=== PATIENT | male | born 1970 | race Caucasian/White ===

== ENCOUNTER 2019-05-22 19:19 | Emergency (ER) | payer OTHER ==
[~2019-05-22] VITALS: Ht 190.5 cm; Wt 124.0 kg
[~2019-05-22 19:19] MED LIST: APIX5TAB PO; APIX5TAB2 PO; CEFD300C3 PO; CYCL-97 PO; DILT360C19 PO; DILT360C36 PO; DLT240CCR PO; Diltiazem Hcl PO; ENOX120D SQ; ESOM20CA32 PO; ESOM20SU; FLEC50TA PO; HYDR-229 PO; HYDR-3455 PO; HYDR1TAB PO; LISI10TA2 PO; METO-370 PO; NAPR-243 PO; NF-ESOM40C PO; PHEN8TAB PO; TELM20TA PO; TELM40TA PO
[2019-05-22] MEDS ORDERED: PROCHLORPERAZINE 10 MG/2ML INJ (COMPAZINE) IV ONE (19:30)
[2019-05-22] MEDS ORDERED: diphenhydrAMINE 50 MG/ML INJ (BENADRYL) IVP ONE (19:30)
[2019-05-22] MEDS ORDERED: NS IV 1000 ML 1,000 ML IV SCH (19:30)
[2019-05-22] MEDS ORDERED: KETOROLAC 30 MG/ML VIAL IVP ONE (19:30)
[2019-05-22 19:37] LABS: BASOPHILS % (AUTO) 0 % (0-10); EOSINOPHILS # (AUTO) 0.1 10^3/uL (0.0-0.3); EOSINOPHILS % (AUTO) 2 % (0-10); HEMATOCRIT 43 % (40-54); HEMOGLOBIN 14.7 G/DL (13.3-17.7); LYMPHOCYTES # (AUTO) 2.3 X 10^3 (1.0-4.0); LYMPHOCYTES % (AUTO) 32 % (12-44); MEAN CORPUSCULAR HEMOGLOBIN 29 PG (25-34); MEAN CORPUSCULAR HGB CONC 35 G/DL (32-36); MEAN CORPUSCULAR VOLUME 85 FL (80-99); MEAN PLATELET VOLUME 11.5 FL (7.4-10.4); MONOCYTES # (AUTO) 0.7 X 10^3 (0.0-1.0); MONOCYTES % (AUTO) 10 % (0-12); NEUTROPHILS % (AUTO) 56 % (42-75); PLATELET COUNT 173 10^3/uL (130-400); RED CELL DISTRIBUTION WIDTH 12.9 % (10.0-14.5); WHITE BLOOD COUNT 7.1 10^3/uL (4.3-11.0)
--- NOTE | 2019-05-22 19:38 | ED Headache ---
General Chief Complaint: Head/Cervical Problems Stated Complaint: SEVERE HEADACHE Source: patient Exam Limitations: no limitations History of Present Illness Date Seen by Provider: May 22, 2019 Time Seen by Provider: 19:35 Initial Comments To ER with reports of a headache. He rates this 11 out of 10 and is global. The headache is worsened by loud noises and light he does have some nausea with that that began today. The headache itself began about 3 days ago, he awakened with it mild at first and got progressively worse since then. He has taken Tylenol for this and initially that did resolve the headache but it has not helped today. No fevers chills or injury. Not on anticoagulation. No history of headaches or migraines. He cannot identify any other alleviating or exacerbating factors. He did quit chewing tobacco today. Timing/Duration: other (3 days) Severity/Quality: severe Location: global Prior Headaches/Recent Trauma: no recent headache/trauma Modifying Factors: worse with exposure to light Associated Symptoms: No confusion, No fatigue, No fever/chills, No loss of consciousness; nausea/vomiting; No nasal congestion, No nasal drainage, No sinus infection, No stiff neck; vision changes (blurred vision) Allergies and Home Medications Allergies Coded Allergies: No Known Drug Allergies (Unverified , 02/22/16) Home Medications Apixaban 5 Mg Tablet, 5 MG PO BID, (Reported) RESTART THIS MEDICATION 02/28/16 AM DOSE Diltiazem HCl 360 Mg Capsule.er, 360 MG PO DAILY, (Reported) Enoxaparin Sodium 120 Mg/0.8 Ml Syringe, 120 MG SQ BID Prescribed by: OZ BURRELL on 02/27/16 1121 Esomeprazole Magnesium 40 Mg Cap, 40 MG PO DAILY, (Reported) Flecainide Acetate 50 Mg Tablet, 50 MG PO BID, (Reported) Hydrocodone/Acetaminophen 1 Each Tablet, 1 EACH PO Q4H PRN for PAIN Prescribed by: SANTIAGO SOLANO on 02/27/16 1405 Lisinopril 10 Mg Tablet, 10 MG PO DAILY, (Reported) Metoprolol Succinate 50 Mg Tab.er.24h, 150 MG PO DAILY, (Reported) PATIENT TAKES 1 1/2 TABLETS OF 50 MG TABLET DAILY Patient Home Medication List Home Medication List Reviewed: Yes Review of Systems Review of Systems Constitutional: see HPI Eyes: No Symptoms Reported Ears, Nose, Mouth, Throat: no symptoms reported Respiratory: no symptoms reported Cardiovascular: no symptoms reported Genitourinary: no symptoms reported Musculoskeletal: no symptoms reported Skin: no symptoms reported Psychiatric/Neurological: See HPI, Headache Past Wvbwmwu-Opsngu-Ullgua Hx Patient Social History Recent Foreign Travel: No Contact w/Someone Who Travel: No Immunizations Up To Date Tetanus Booster (TDap): More than 5yrs PED Vaccines UTD: Yes Seasonal Allergies Seasonal Allergies: No Past Medical History Atrial Fibrillation, Hypertension Reproductive Disorders: No Sexually Transmitted Disease: No HIV/AIDS: No Kidney Stones Gastroesophageal Reflux Loss of Vision: Bilateral Hearing Impairment: Denies Skin Adverse Reaction/Blood Tranf: No (HAS HAD BLOOD WITH NO TRANSFUSION) Family Medical History Cancer 03 MOTHER (colon ca age at 63) Heart disease 09 BROTHER, Onset:40's - 50 (irregular heart beats) Physical Exam Vital Signs Vital Signs - First Documented 05/22/19 19:34 Temp 97.6 Pulse 98 Resp 18 B/P (MAP) 185/121 (142) O2 Delivery Room Air Capillary Refill : Height, Weight, BMI Height: 6'3.00" Weight: 273lbs. 6.0oz. 124.156380qk; 34.2 BMI Method:Stated General Appearance: WD/WN, no apparent distress HEENT: PERRL/EOMI, normal ENT inspection, TMs normal Neck: non-tender, full range of motion Respiratory: no respiratory distress, no accessory muscle use Gastrointestinal: normal bowel sounds, non tender, soft Extremities: normal range of motion, non-tender Psychiatric: alert, oriented x 3 Crainal Nerves: normal hearing, normal speech, PERRL Motor/Sensory: no motor deficit, no sensory deficit, no pronator drift Skin: normal color, warm/dry Progress/Results/Core Measures Results/Orders Lab Results Laboratory Tests Test 05/22/19 19:32 Range/Units White Blood Count 7.1 4.3-11.0 10^3/uL Red Blood Count 5.01 4.35-5.85 10^6/uL Hemoglobin 14.7 13.3-17.7 G/DL Hematocrit 43 40-54 % Mean Corpuscular Volume 85 80-99 FL Mean Corpuscular Hemoglobin 29 25-34 PG Mean Corpuscular Hemoglobin Concent 35 32-36 G/DL Red Cell Distribution Width 12.9 10.0-14.5 % Platelet Count 173 130-400 10^3/uL Mean Platelet Volume 11.5 H 7.4-10.4 FL Neutrophils (%) (Auto) 56 42-75 % Lymphocytes (%) (Auto) 32 12-44 % Monocytes (%) (Auto) 10 0-12 % Eosinophils (%) (Auto) 2 0-10 % Basophils (%) (Auto) 0 0-10 % Neutrophils # (Auto) 4.0 1.8-7.8 X 10^3 Lymphocytes # (Auto) 2.3 1.0-4.0 X 10^3 Monocytes # (Auto) 0.7 0.0-1.0 X 10^3 Eosinophils # (Auto) 0.1 0.0-0.3 10^3/uL Basophils # (Auto) 0.0 0.0-0.1 10^3/uL Erythrocyte Sedimentation Rate 3 0-15 MM/HR Sodium Level 142 135-145 MMOL/L Potassium Level 3.9 3.6-5.0 MMOL/L Chloride Level 109 H 98-107 MMOL/L Carbon Dioxide Level 22 21-32 MMOL/L Anion Gap 11 5-14 MMOL/L Blood Urea Nitrogen 19 H 7-18 MG/DL Creatinine 1.19 0.60-1.30 MG/DL Estimat Glomerular Filtration Rate > 60 BUN/Creatinine Ratio 16 Glucose Level 103 70-105 MG/DL Calcium Level 9.1 8.5-10.1 MG/DL Corrected Calcium 8.7 8.5-10.1 MG/DL Total Bilirubin 0.4 0.1-1.0 MG/DL Aspartate Amino Transf (AST/SGOT) 19 5-34 U/L Alanine Aminotransferase (ALT/SGPT) 20 0-55 U/L Alkaline Phosphatase 72 40-136 U/L Total Protein 7.3 6.4-8.2 GM/DL Albumin 4.5 3.2-4.5 GM/DL My Orders Orders - SOHAM JOYCE APRN Ct Head Wo (05/22/19 19:25) Cbc With Automated Diff (05/22/19 19:25) Erythrocyte Sedimentation Rate (05/22/19 19:25) Comprehensive Metabolic Panel (05/22/19 19:25) Ed Iv/Invasive Line Start (05/22/19 19:25) Ketorolac Injection (Toradol Injection) (05/22/19 19:30) Ns Iv 1000 Ml (Sodium Chloride 0.9%) (05/22/19 19:30) Diphenhydramine Injection (Benadryl Inje (05/22/19 19:30) Prochlorperazine Injection (Compazine In (05/22/19 19:30) Medications Given in ED Current Medications Medications Dose Ordered Sig/Hilda Route Start Time Stop Time Status Last Admin Dose Admin Diphenhydramine HCl 25 mg ONCE ONCE IVP 05/22/19 19:30 05/22/19 19:31 DC 05/22/19 19:48 25 MG Ketorolac Tromethamine 15 mg ONCE ONCE IVP 05/22/19 19:30 05/22/19 19:31 DC 05/22/19 19:48 15 MG Prochlorperazine Edisylate 5 mg ONCE ONCE IV 05/22/19 19:30 05/22/19 19:31 DC 05/22/19 19:47 5 MG Vital Signs/I&O 05/22/19 19:34 Temp 97.6 Pulse 98 Resp 18 B/P (MAP) 185/121 (142) O2 Delivery Room Air Departure Communication (Admissions) 2011-headache is now completely gone, blood pressure down to 144/96. is present and is concerned about his high blood pressure, states that he is on lisinopril and diltiazem at home and despite this he has persistence high blood pressures. Impression Primary Impression: Headache Qualified Codes: R51 - Headache Disposition: 01 HOME, SELF-CARE Condition: Stable Departure-Patient Inst. Decision time for Depature: 19:57 Referrals: BELEM HA MD (PCP/Family) Primary Care Physician Patient Instructions: Headache, Adult (DC) Add. Discharge Instructions: 1. Return to ER for any concerns 2. Follow-up with your doctor next week 3. All discharge instructions reviewed with patient and/or family. Voiced understanding. SOHAM JOYCE CUSTOM STUDIO COORDINATOR May 22, 2019 19:37
--- NOTE | 2019-05-22 19:44 | Diagnostic Imaging Report ---
PROCEDURE: CT head without contrast. TECHNIQUE: Multiple contiguous axial images were obtained through the brain without the use of intravenous contrast. Auto Exposure Controls were utilized during the CT exam to meet ALARA standards for radiation dose reduction. INDICATION: Headache COMPARISON: None. FINDINGS: The ventricles are normal in size, shape and position. There is no midline shift or mass effect. There is no hemorrhage or evidence of acute ischemia. No extraaxial fluid collection is seen. The paranasal sinuses and mastoids are clear. The bony calvarium is normal. IMPRESSION: Negative CT head. Dictated by: Dictated on workstation # [id number]
[2019-05-22 19:56] LABS: ALANINE AMINOTRANSFERASE 20 U/L (0-55); ALBUMIN 4.5 GM/DL (3.2-4.5); ALKALINE PHOSPHATASE 72 U/L (40-136); BILIRUBIN,TOTAL 0.4 MG/DL (0.1-1.0); BUN/CREATININE RATIO 16; CALCIUM 9.1 MG/DL (8.5-10.1); CARBON DIOXIDE 22 MMOL/L (21-32); CHLORIDE 109 MMOL/L (98-107); CREATININE SERUM 1.19 MG/DL (0.60-1.30); ERYTHROCYTE SEDIMENTATION RATE 3 MM/HR (0-15); GFR ESTIMATED > 60; GLUCOSE 103 MG/DL (70-105); POTASSIUM 3.9 MMOL/L (3.6-5.0); SODIUM 142 MMOL/L (135-145); TOTAL PROTEIN 7.3 GM/DL (6.4-8.2)
[2019-05-22 20:43] VITALS: BP 140/81
== END 2019-05-22 20:45 | disposition home or self-care (01) ==
LOC: EDUNIT# 19:19 → ER 19:21
DX: R51 Headache (principal); I10 Essential (primary) hypertension; I48.91 Unspecified atrial fibrillation; K21.9 Gastro-esophageal reflux disease without esophagitis; H54.7 Unspecified visual loss; Z79.01 Long term (current) use of anticoagulants; Z87.442 Personal history of urinary calculi; Z80.0 Family history of malignant neoplasm of digestive organs; Z82.49 Family history of ischemic heart disease and other diseases of the circulatory system
CPT/HCPCS: 36415; 70450; 80053; 83735; 85025; 85652

== ENCOUNTER 2020-06-17 18:20 | Emergency (ER) | payer OTHER ==
[~2020-06-17] VITALS: Ht 187.9 cm; Wt 120.2 kg
[~2020-06-17 18:20] MED LIST changes: -METO-370 PO; +METO50TA7 PO
--- NOTE | 2020-06-17 18:29 | ED EENT ---
History of Present Illness General Stated Complaint: EYE INJ Source: patient Exam Limitations: no limitations History of Present Illness Date Seen by Provider: Jun 17, 2020 Time Seen by Provider: 18:29 Initial Comments This is a healthy 50-year-old male who presents to the ER with swelling of his left eye after after baling hay approximately 30 minutes prior to arrival. States he felt like he had basic dirt in his eye and after rubbing his eye he noticed rapid swelling. He immediately presented to the ER. Denies loss/change in vision. Denies pain. Timing/Duration: abrupt Location: eye (L) Prearrival Treatment: no prearrival treatment Associated Symptoms: denies symptoms Allergies and Home Medications Allergies Coded Allergies: No Known Drug Allergies (Unverified , 02/22/16) Home Medications Apixaban 5 Mg Tablet, 5 MG PO BID, (Reported) RESTART THIS MEDICATION 02/28/16 AM DOSE Diltiazem HCl 360 Mg Capsule.er, 360 MG PO DAILY, (Reported) Enoxaparin Sodium 120 Mg/0.8 Ml Syringe, 120 MG SQ BID Prescribed by: OZ BURRELL on 02/27/16 1121 Esomeprazole Magnesium 40 Mg Cap, 40 MG PO DAILY, (Reported) Flecainide Acetate 50 Mg Tablet, 50 MG PO BID, (Reported) Hydrocodone/Acetaminophen 1 Each Tablet, 1 EACH PO Q4H PRN for PAIN Prescribed by: SANTIAGO SOLANO on 02/27/16 1405 Lisinopril 10 Mg Tablet, 10 MG PO DAILY, (Reported) Metoprolol Succinate 50 Mg Tab.er.24h, 150 MG PO DAILY, (Reported) PATIENT TAKES 1 1/2 TABLETS OF 50 MG TABLET DAILY Patient Home Medication List Home Medication List Reviewed: Yes Review of Systems Review of Systems Constitutional: see HPI Eyes: See HPI Ears: No Symptoms Reported Nose: no symptoms reported Mouth: no symptoms reported Throat: no symptoms reported Respiratory: no symptoms reported Cardiovascular: no symptoms reported Gastrointestinal: no symptoms reported Musculoskeletal: no symptoms reported Skin: no symptoms reported Neurological: No Symptoms Reported Hematologic/Lymphatic: No Symptoms Reported Immunological/Allergic: no symptoms reported Past Kmawmdh-Moxghh-Mhxzny Hx Patient Social History Type Used: Smokeless Tobacco Recent Foreign Travel: No Contact w/Someone Who Travel: No Recent Hopitalizations: No Immunizations Up To Date Tetanus Booster (TDap): More than 5yrs PED Vaccines UTD: Yes Seasonal Allergies Seasonal Allergies: No Past Medical History Surgeries: Yes (CARDIOVERSION, REPAIR OF CUT LEG) Respiratory: No Cardiac: Yes Atrial Fibrillation, Hypertension Neurological: Yes ( A CHILD FROM MALNUTRITION) Reproductive Disorders: No Sexually Transmitted Disease: No HIV/AIDS: No Kidney Stones Gastrointestinal: Yes Gastroesophageal Reflux Musculoskeletal: No Endocrine: No Loss of Vision: Bilateral Hearing Impairment: Denies Cancer: Yes (ON SHOULDER) Skin Psychosocial: No Integumentary: No Blood Disorders: No Adverse Reaction/Blood Tranf: No (HAS HAD BLOOD WITH NO TRANSFUSION) Family Medical History Cancer 03 MOTHER (colon ca age at 63) Heart disease 09 BROTHER, Onset:40's - 50 (irregular heart beats) Visual Acuity : Eye Location: Left Physical Exam Vital Signs Vital Signs - First Documented 06/17/20 18:24 Temp 36.5 Pulse 65 Resp 20 B/P (MAP) 197/128 (151) Pulse Ox 97 O2 Delivery Room Air Height, Weight, BMI Height: 6'3.00" Weight: 273lbs. 6.0oz. 124.079223hx; 34.2 BMI Method:Stated General Appearance: WD/WN, no apparent distress Eyes: right eye normal inspection, right eye PERRL, right eye EOMI; left eye conjunctival inflammation Ears: bilateral ear auricle normal, bilateral ear canal normal Nose: normal inspection; No active bleeding Mouth/Throat: normal mouth inspection, pharynx normal Neck: non-tender, full range of motion, normal inspection Cardiovascular: regular rate, rhythm, no edema, no gallop Respiratory: chest non-tender, lungs clear, normal breath sounds, no respiratory distress, no accessory muscle use Gastrointestinal: normal bowel sounds, non tender, soft Neurologic/Psychiatric: no motor/sensory deficits, alert, normal mood/affect, oriented x 3 Skin: normal color, warm/dry Progress/Results/Core Measures Results/Orders My Orders Orders - PARDEEP JAMIL MANAGER POKER Fluorescein Strips ([id number]) (06/17/20 18:30) Balanced Salt Irrigation Soln (Bss Irrig (06/17/20 18:30) Ns Iv 1000 Ml (Sodium Chloride 0.9%) (06/17/20 18:30) Prednisolone 1% Ophthalmic Pricilla (Pred For (06/17/20 18:41) Prednisolone 1% Ophthalmic Pricilla (Pred For (06/17/20 18:45) Diphenhydramine Tablet (Benadryl Tablet) (06/17/20 18:45) Medications Given in ED Current Medications Medications Dose Ordered Sig/Hilda Route Start Time Stop Time Status Last Admin Dose Admin Diphenhydramine HCl 50 mg ONCE ONCE PO 06/17/20 18:45 06/17/20 18:57 DC 06/17/20 19:01 50 MG Prednisolone Acetate 5 ml STK-MED ONCE .ROUTE 06/17/20 18:41 06/17/20 18:46 DC 06/17/20 18:45 5 ML Vital Signs/I&O 06/17/20 06/17/20 06/17/20 06/17/20 18:24 19:17 20:17 20:37 Temp 36.5 36.1 Pulse 65 56 51 51 Resp 20 20 20 20 B/P (MAP) 197/128 (151) 168/118 (135) 166/107 (126) 166/107 Pulse Ox 97 94 97 97 O2 Delivery Room Air Room Air Room Air Room Air Progress Progress Note : Progress Note Pressure in ED noted at 170s over low 100s-119. States she is very anxious when his eye began to swell and has not yet taken his antihypertensives this evening. Due to his elevation in blood pressure I will not give oral steroids at this time. He can continue oral antihistamines at home along with PredForte eyedrops as directed. Departure Communication (Admissions) Time/Spoke to Consulting Phy: 18:40 I discussed findings with Dr. Irby at this time, he recommended Predforte drops every 15 minutes 1 hour, then every hour 3 hours, then 4 times a day for 6 days. Instructed to give patient his cell phone and placed on Medrol Dose pack if not contraindicated. He is to call him for any worsening symptoms. Impression Primary Impression: Chemosis of left conjunctiva Disposition: HOME, SELF-CARE Condition: Stable/Unchanged Departure-Patient Inst. Decision time for Depature: 19:27 Referrals: BELEM HA MD (PCP/Family) Primary Care Physician Patient Instructions: Swelling Add. Discharge Instructions: Plan: 1. If you experience any worsening symptoms, loss of vision, changes in vision or any other concerning symptoms. Please call Dr. Fraser at [phone]. [address] 2 drops of the Predforte in her left eye every hour over the next 2 hours. Then placed 2 drops in your eye 4 times a day for the next 6 days. 3. Be sure to wash her hands prior to touching eyes to avoid additional reactions. May use cool compresses for swelling and discomfort. 4. Taking her antihypertensives as soon as you get home. 5. Return to the ER for any new or concerning symptoms Copy Copies To 1: BELEM HA MD, STORMY D MANAGER POKER Jun 17, 2020 18:29
[2020-06-17] MEDS ORDERED: FLUORESCEIN (FLUOR-I-STRIPS) 1 MG STRP OU ONE (18:30)
[2020-06-17] MEDS ORDERED: TETRACAINE 0.5% OPHTH SOLN 4 ML BTL (SINGLE DOSE ONLY) OU ONE (18:30)
[2020-06-17] MEDS ORDERED: NS IV 1000 ML 1,000 ML ONE (18:30)
[2020-06-17] MEDS ORDERED: BSS 15 ML IR ONE (18:30)
[2020-06-17] MEDS ORDERED: prednisoLONE 1% OPTH (PRED FORTE) 5 ML BTL ONE (18:41)
[2020-06-17] MEDS ORDERED: prednisoLONE 1% OPTH (PRED FORTE) 5 ML BTL OU SCH (18:45)
[2020-06-17] MEDS ORDERED: diphenhydrAMINE 25 MG TAB (BENADRYL) PO ONE (18:45)
[2020-06-17 19:17] VITALS: BP 168/118
[2020-06-17 20:17] VITALS: BP 166/107
[2020-06-17 20:37] VITALS: BP 166/107
== END 2020-06-17 20:30 | disposition home or self-care (01) ==
LOC: EDUNIT# 18:20 → ER 18:21
DX: H11.422 Conjunctival edema, left eye (principal); I10 Essential (primary) hypertension; K21.9 Gastro-esophageal reflux disease without esophagitis; Z82.49 Family history of ischemic heart disease and other diseases of the circulatory system; Z80.0 Family history of malignant neoplasm of digestive organs; Z85.828 Personal history of other malignant neoplasm of skin; Z79.01 Long term (current) use of anticoagulants
CPT/HCPCS: 99283

== ENCOUNTER 2021-02-22 07:40 | Emergency (ER) | payer OTHER ==
[~2021-02-22] VITALS: Ht 190 cm; Wt 120.0 kg
[~2021-02-22 07:40] MED LIST changes: +LISI10TA25 PO
--- NOTE | 2021-02-22 09:07 | ED EENT ---
History of Present Illness General Chief Complaint: Ear Problems Stated Complaint: L EAR PAIN Nursing Triage Note: Patient states he was getting out of the shower yesterday and got water in his ear. He states he tried to get the water out with his finger and then used a q-tip with no relief. He states today he is unable to hear from his left ear. Source: patient Exam Limitations: no limitations History of Present Illness Date Seen by Provider: February 22, 2021 Time Seen by Provider: 08:50 Initial Comments Here with report of left ear clogged. States he was showering yesterday and got water in his ear. He tried to clear that with his finger and then a Q-tip and this did not help. States that his hearing is decreased from the left ear. Denies upper respiratory symptoms, allergy symptoms, fever or chills. Denies any other recent trauma. Has had history of wax in his ears with similar problem previously. Timing/Duration: abrupt Location: ear (L) Prearrival Treatment: other (Tried flushing at home without success.) Associated Symptoms: No ear drainage, No fever, No nasal congestion/drainage, N o sore throat Allergies and Home Medications Allergies Coded Allergies: No Known Drug Allergies (Unverified , 02/22/16) Home Medications Apixaban 5 Mg Tablet, 5 MG PO BID, (Reported) RESTART THIS MEDICATION 02/28/16 AM DOSE Diltiazem HCl 360 Mg Capsule.er, 360 MG PO DAILY, (Reported) Enoxaparin Sodium 120 Mg/0.8 Ml Syringe, 120 MG SQ BID Prescribed by: OZ BURRELL on 02/27/16 1121 Esomeprazole Magnesium 40 Mg Cap, 40 MG PO DAILY, (Reported) Flecainide Acetate 50 Mg Tablet, 50 MG PO BID, (Reported) Hydrocodone/Acetaminophen 1 Each Tablet, 1 EACH PO Q4H PRN for PAIN Prescribed by: SANTIAGO SOLANO on 02/27/16 1405 Lisinopril 10 Mg Tablet, 10 MG PO DAILY, (Reported) Metoprolol Succinate 50 Mg Tab.er.24h, 150 MG PO DAILY, (Reported) PATIENT TAKES 1 1/2 TABLETS OF 50 MG TABLET DAILY Patient Home Medication List Home Medication List Reviewed: Yes Review of Systems Review of Systems Constitutional: No chills, No fever Eyes: No Symptoms Reported Ears: See HPI; Denies Pain Respiratory: No cough, No short of breath Cardiovascular: no symptoms reported Past Iptnvtv-Nrkozn-Kfxeys Hx Past Med/Social Hx: Reviewed Nursing Past Med/Soc Hx Patient Social History Alcohol Use: Denies Use Type Used: Smokeless Tobacco 2nd Hand Smoke Exposure: No Recent Infectious Disease Expo: No Recent Hopitalizations: No Immunizations Up To Date Tetanus Booster (TDap): More than 5yrs PED Vaccines UTD: Yes Seasonal Allergies Seasonal Allergies: No Past Medical History Surgeries: Yes (CARDIOVERSION, REPAIR OF CUT LEG, ABLASION) Respiratory: No Cardiac: Yes Atrial Fibrillation, Hypertension Neurological: Yes ( A CHILD FROM MALNUTRITION) Reproductive Disorders: No Sexually Transmitted Disease: No HIV/AIDS: No Kidney Stones Gastrointestinal: Yes Gastroesophageal Reflux Musculoskeletal: No Endocrine: No Loss of Vision: Bilateral Hearing Impairment: Denies Cancer: Yes (ON SHOULDER) Skin Psychosocial: No Integumentary: No Blood Disorders: No Adverse Reaction/Blood Tranf: No (HAS HAD BLOOD WITH NO TRANSFUSION) Family Medical History Reviewed Nursing Family Hx Cancer 03 MOTHER (colon ca age at 63) Heart disease 09 BROTHER, Onset:40's - 50 (irregular heart beats) Physical Exam Vital Signs Vital Signs - First Documented 02/22/21 08:35 Temp 36.5 Pulse 65 Resp 16 B/P (MAP) 169/123 (138) Pulse Ox 97 O2 Delivery Room Air Height, Weight, BMI Height: 6'3.00" Weight: 273lbs. 6.0oz. 124.323723oc; 33.00 BMI Method:Stated General Appearance: WD/WN, no apparent distress Ears: right ear TM normal; left ear other (TM covered with cerumen. No obvious problems within the canal otherwise.); bilateral ear auricle normal, bilateral ear canal normal Mouth/Throat: normal mouth inspection, pharynx normal Neck: full range of motion, supple Cardiovascular: regular rate, rhythm, no murmur Respiratory: lungs clear, normal breath sounds Neurologic/Psychiatric: alert, oriented x 3 Skin: normal color, warm/dry Progress/Results/Core Measures Results/Orders Vital Signs/I&O 02/22/21 08:35 Temp 36.5 Pulse 65 Resp 16 B/P (MAP) 169/123 (138) Pulse Ox 97 O2 Delivery Room Air Blood Pressure Mean: 138 Progress Progress Note : Progress Note Seen and evaluated. Patient has obvious cerumen impaction. We will try to clear that the flushing. 929: Patient states that he has to go to work. He decided he will try this at home. Discharged home with instructions for flushing. Departure Impression Primary Impression: Impacted cerumen Qualified Codes: H61.22 - Impacted cerumen, left ear Disposition: 01 HOME, SELF-CARE Condition: Stable Departure-Patient Inst. Decision time for Depature: 09:30 Referrals: BELEM HA MD (PCP/Family) Primary Care Physician Patient Instructions: Ear Wax Impaction (DC) Add. Discharge Instructions: All discharge instructions reviewed with patient and/or family. Voiced understanding. You may use [id number] earwax drops or continue to flush. Follow-up with ear nose and throat doctor for recheck and further evaluation as needed. LASHAWN RIVERA MD February 22, 2021 09:06
[2021-02-22 09:37] VITALS: BP 182/126
== END 2021-02-22 09:50 | disposition home or self-care (01) ==
LOC: EDUNIT# 07:40 → ER 07:42
DX: H61.22 Impacted cerumen, left ear (principal); I10 Essential (primary) hypertension; I48.91 Unspecified atrial fibrillation; K21.9 Gastro-esophageal reflux disease without esophagitis; Z79.01 Long term (current) use of anticoagulants; Z79.899 Other long term (current) drug therapy
CPT/HCPCS: 99282

== ENCOUNTER 2021-05-09 01:27 | Emergency (ER) | payer OTHER ==
[~2021-05-09] VITALS: Ht 185 cm; Wt 113.0 kg
[2021-05-09] MEDS ORDERED: PROCHLORPERAZINE 10 MG/2ML INJ (COMPAZINE) IV ONE (03:15)
[2021-05-09] MEDS ORDERED: KETOROLAC 30 MG/ML VIAL IVP ONE (03:15)
[2021-05-09] MEDS ORDERED: LACTATED RINGERS 1,000 ML IV ONE (03:15)
[2021-05-09] MEDS ORDERED: diphenhydrAMINE 50 MG/ML INJ (BENADRYL) IVP ONE (03:15)
[2021-05-09 03:18] LABS: POTASSIUM 3.5 MMOL/L (3.6-5.0)
[2021-05-09 03:19] LABS: CALCIUM 9.3 MG/DL (8.5-10.1)
[2021-05-09 03:24] LABS: CREATININE SERUM 1.06 MG/DL (0.60-1.30)
[2021-05-09 03:46] LABS: TSH (THYROID ANALYZER) 0.83 UIU/ML (0.35-4.94)
--- NOTE | 2021-05-09 04:28 | ED Headache ---
General Chief Complaint: Head/Cervical Problems Stated Complaint: MIGRAINE Nursing Triage Note: Patient verbalized headache. states side pain. denies fever/vomitting/diarrhea. Source: patient Exam Limitations: no limitations Allergies and Home Medications Allergies Coded Allergies: No Known Drug Allergies (Unverified , 02/22/16) Home Medications Apixaban 5 Mg Tablet, 5 MG PO BID, (Reported) RESTART THIS MEDICATION 02/28/16 AM DOSE Diltiazem HCl 360 Mg Capsule.er, 360 MG PO DAILY, (Reported) Enoxaparin Sodium 120 Mg/0.8 Ml Syringe, 120 MG SQ BID Prescribed by: OZ BURRELL on 02/27/16 1121 Esomeprazole Magnesium 40 Mg Cap, 40 MG PO DAILY, (Reported) Flecainide Acetate 50 Mg Tablet, 50 MG PO BID, (Reported) Hydrocodone/Acetaminophen 1 Each Tablet, 1 EACH PO Q4H PRN for PAIN Prescribed by: SANTIAGO SOLANO on 02/27/16 1405 Lisinopril 10 Mg Tablet, 10 MG PO DAILY, (Reported) Metoprolol Succinate 50 Mg Tab.er.24h, 150 MG PO DAILY, (Reported) PATIENT TAKES 1 1/2 TABLETS OF 50 MG TABLET DAILY Past Egesczh-Dtsrch-Oekzno Hx Patient Social History Tobacco Use?: No Use of E-Cig and/or Vaping dev: No Substance use?: No Alcohol Use?: No Pt feels they are or have been: No Immunizations Up To Date Tetanus Booster (TDap): More than 5yrs PED Vaccines UTD: Yes Seasonal Allergies Seasonal Allergies: No Past Medical History Surgeries: Yes (CARDIOVERSION, REPAIR OF CUT LEG, ABLASION) Respiratory: No Cardiac: Yes Atrial Fibrillation, Hypertension Neurological: Yes ( A CHILD FROM MALNUTRITION) Reproductive Disorders: No Sexually Transmitted Disease: No HIV/AIDS: No Kidney Stones Gastrointestinal: Yes Gastroesophageal Reflux Musculoskeletal: No Endocrine: No Loss of Vision: Bilateral Hearing Impairment: Denies Cancer: Yes (ON SHOULDER) Skin Psychosocial: No Integumentary: No Blood Disorders: No Adverse Reaction/Blood Tranf: No (HAS HAD BLOOD WITH NO TRANSFUSION) Family Medical History Cancer 03 MOTHER (colon ca age at 63) Heart disease 09 BROTHER, Onset:40's - 50 (irregular heart beats) Physical Exam Vital Signs Vital Signs - First Documented 05/09/21 02:15 Temp 37.0 Pulse 96 Resp 20 B/P (MAP) 165/117 (133) Pulse Ox 96 O2 Delivery Room Air Capillary Refill : Less Than 3 Seconds Height, Weight, BMI Height: 6'3.00" Weight: 273lbs. 6.0oz. 124.137203wi; 33.00 BMI Method:Stated Progress/Results/Core Measures Results/Orders Lab Results Laboratory Tests Test 05/09/21 02:15 Range/Units Sodium Level 143 135-145 MMOL/L Potassium Level 3.5 L 3.6-5.0 MMOL/L Chloride Level 107 98-107 MMOL/L Carbon Dioxide Level 22 21-32 MMOL/L Anion Gap 14 5-14 MMOL/L Blood Urea Nitrogen 12 7-18 MG/DL Creatinine 1.06 0.60-1.30 MG/DL Estimat Glomerular Filtration Rate 74 BUN/Creatinine Ratio 11 Glucose Level 142 H 70-105 MG/DL Calcium Level 9.3 8.5-10.1 MG/DL TSH [place] Testing 0.83 0.35-4.94 UIU/ML SARS-CoV-2 RNA (RT-PCR) Negative Not Detecte My Orders Orders - ADELAIDA BILL MD Covid 19 Inhouse Test (05/09/21 02:25) Prochlorperazine Injection (Compazine In (05/09/21 03:15) Diphenhydramine Injection (Benadryl Inje (05/09/21 03:15) Ed Iv/Invasive Line Start (05/09/21 03:05) Lactated Ringers (Lr 1000 Ml Iv Solution (05/09/21 03:15) Ketorolac Injection (Toradol Injection) (05/09/21 03:15) Basic Metabolic Panel (05/09/21 03:08) Thyroid Analyzer (05/09/21 03:08) Medications Given in ED Current Medications Medications Dose Ordered Sig/Hilda Route Start Time Stop Time Status Last Admin Dose Admin Diphenhydramine HCl 25 mg ONCE ONCE IVP 05/09/21 03:15 05/09/21 03:16 DC 05/09/21 03:16 25 MG Ketorolac Tromethamine 15 mg ONCE ONCE IVP 05/09/21 03:15 05/09/21 03:16 DC 05/09/21 03:17 15 MG Lactated Ringer's 1,000 ml @ 0 mls/hr Q0M ONCE IV 05/09/21 03:15 05/09/21 03:16 DC 05/09/21 03:15 0 MLS/HR Prochlorperazine Edisylate 5 mg ONCE ONCE IV 05/09/21 03:15 05/09/21 03:16 DC 05/09/21 03:14 5 MG Vital Signs/I&O 05/09/21 02:15 Temp 37.0 Pulse 96 Resp 20 B/P (MAP) 165/117 (133) Pulse Ox 96 O2 Delivery Room Air Blood Pressure Mean: 133 Departure Impression Primary Impression: Acute headache Qualified Codes: R51.9 - Headache, unspecified Additional Impression: Hypertension Qualified Codes: I10 - Essential (primary) hypertension Disposition: 01 HOME, SELF-CARE Condition: Improved Departure-Patient Inst. Decision time for Depature: 04:27 Referrals: BELEM HA MD (PCP/Family) Primary Care Physician Patient Instructions: Home Headache Remedies, Headache, Adult (DC) Add. Discharge Instructions: Drink plenty of clear liquids to stay well-hydrated. Get plenty of rest in a quiet calm place this morning. Call with questions or concerns. Return to the ER if you have worsening symptoms. Follow-up with your primary care provider to discuss headache treatment and prevention. Avoid things that can escalate your blood pressure such as excessive salt or stimulants such as caffeine, decongestant medicines, diet pills or supplements, energy drinks, etc. All discharge instructions reviewed with patient and/or family. Voiced understanding. ADELAIDA BILL MD May 09, 2021 04:28
[2021-05-09 04:54] VITALS: BP 142/88
== END 2021-05-09 05:00 | disposition home or self-care (01) ==
LOC: EDUNIT# 01:27 → ER 01:30
DX: R51.9 Headache, unspecified (principal); I10 Essential (primary) hypertension; K21.9 Gastro-esophageal reflux disease without esophagitis; I48.91 Unspecified atrial fibrillation; Z20.822 Contact with and (suspected) exposure to COVID-19; Z79.01 Long term (current) use of anticoagulants; Z79.899 Other long term (current) drug therapy
CPT/HCPCS: 36415; 80048; 84443; 87636

== ENCOUNTER 2021-11-03 00:33 | Emergency (ER) | payer OTHER ==
[~2021-11-03] VITALS: Ht 190.5 cm; Wt 125.0 kg
--- NOTE | 2021-11-03 01:25 | ED Chest Pain ---
General Chief Complaint: Cardiac/General Problems Stated Complaint: L ARM PAIN;FINGER/BACK/PECTORAL NUMBNESS Source: patient Exam Limitations: no limitations History of Present Illness Date Seen by Provider: Nov 03, 2021 Time Seen by Provider: 01:01 Initial Comments Patient presents ER by private conveyance with his significant other chief complaint yesterday morning at 8 in the AM, 17 hours ago he started having some back pain after he rolled over in bed. Pain extended from his upper thoracic spine with numbness and tingling down his left arm past his ulnar fossa of his elbow and into his second and third digits. He has had something similar to this in the past in his right arm and had to have surgery on his shoulder. He says he was working on changing oil on his 's car and thinks it may be that triggered it. He does not have a history of heart disease but he did have an ablation for atrial fibrillation. He is not on blood thinners. He is followed by Dr. Santiago and Dr. Ha for primary care. He is not having any nausea fevers cough shortness of air diarrhea. He has been taken some Tylenol with minimal relief of symptoms. He wants to make sure he is not having a heart attack and he wants relief of his symptoms. Allergies and Home Medications Allergies Coded Allergies: No Known Drug Allergies (Unverified , 02/22/16) Patient Home Medication List Home Medication List Reviewed: Yes Apixaban (Eliquis) 5 Mg Tablet, 5 MG PO BID, (Reported) Entered as Reported by: NICOL GARCIA on 09/26/15 0732 Cyclobenzaprine HCl (Cyclobenzaprine HCl) 10 Mg Tablet, 10 MG PO Q8H PRN for SPASMS Prescribed by: MYRON FRITZ on 11/03/21 0243 Diltiazem HCl (Taztia Xt) 360 Mg Capsule.er, 360 MG PO DAILY, (Reported) Entered as Reported by: ANGELINE DAS on 11/18/15 182 Enoxaparin Sodium (Lovenox) 120 Mg/0.8 Ml Syringe, 120 MG SQ BID Prescribed by: OZ BURRELL on 02/27/16 1121 Esomeprazole Magnesium (Nexium) 40 Mg Cap, 40 MG PO DAILY, (Reported) Entered as Reported by: ANGELINE DAS on 11/18/15 1736 Flecainide Acetate (Flecainide Acetate) 50 Mg Tablet, 50 MG PO BID, (Reported) Entered as Reported by: NICOL GARCIA on 10/18/15 1000 Hydrocodone/Acetaminophen (Vicodin 5-300 mg Tablet) 1 Each Tablet, 1 EACH PO Q4H PRN for PAIN Prescribed by: SANTIAGO SOLANO on 02/27/16 1405 Lisinopril (Lisinopril) 10 Mg Tablet, 10 MG PO DAILY, (Reported) Entered as Reported by: ANGELINE DAS on 11/18/15 1736 Metoprolol Succinate (Metoprolol Succinate) 50 Mg Tab.er.24h, 150 MG PO DAILY, (Reported) Entered as Reported by: NICOL GARCIA on 09/26/15 0732 Review of Systems Review of Systems Constitutional: No chills, No diaphoresis EENTM: No Blurred Vision, No Double Vision Respiratory: Denies Cough, Denies Shortness of Air Cardiovascular: Denies Chest Pain, Denies Lightheadedness Gastrointestinal: Denies Constipated, Denies Diarrhea, Denies Nausea Genitourinary: Denies Discharge, Denies Drainage Musculoskeletal: back pain; No joint pain Skin: No change in color, No pruritus, No rash Psychiatric/Neurological: Denies Anxiety, Denies Depressed All Other Systems Reviewed Negative Unless Noted: Yes Past Eiwiwcc-Sottpm-Jerbmy Hx Patient Social History Tobacco Use?: Yes Smokeless Tobacco Frequency: Current Everyday User Use of E-Cig and/or Vaping dev: No Substance use?: No Alcohol Use?: Yes Alcohol type: Beer Alcohol Frequency: Once in a while Pt feels they are or have been: No Immunizations Up To Date Tetanus Booster (TDap): More than 5yrs PED Vaccines UTD: Yes Influenza Vaccine Up-to-Date: No; Not Current First/Initial COVID19 Vaccinat: N/A Seasonal Allergies Seasonal Allergies: No Past Medical History Surgery/Hospitalization HX: CARDIAC ABLATION Surgeries: Yes (CARDIOVERSION, REPAIR OF CUT LEG, ABLASION) Respiratory: No Cardiac: Yes Atrial Fibrillation, Hypertension Neurological: Yes ( A CHILD FROM MALNUTRITION) Reproductive Disorders: No Sexually Transmitted Disease: No HIV/AIDS: No Kidney Stones Gastrointestinal: Yes Gastroesophageal Reflux Musculoskeletal: No Endocrine: No Loss of Vision: Bilateral Hearing Impairment: Denies Cancer: Yes (ON SHOULDER) Skin Psychosocial: No Integumentary: No Blood Disorders: No Adverse Reaction/Blood Tranf: No (HAS HAD BLOOD WITH NO TRANSFUSION) Family Medical History Cancer 03 MOTHER (colon ca age at 63) Heart disease 09 BROTHER, Onset:40's - 50 (irregular heart beats) Physical Exam Vital Signs Vital Signs - First Documented 11/03/21 00:39 Temp 36.8 Pulse 80 Resp 20 B/P (MAP) 205/138 (160) Pulse Ox 97 O2 Delivery Room Air Capillary Refill : Height, Weight, BMI Height: 6'3.00" Weight: 273lbs. 6.0oz. 124.723403my; 33.00 BMI Method:Stated General Appearance: No Apparent Distress, WD/WN HEENT: PERRL/EOMI, Pharynx Normal, Moist Mucous Membranes Neck: Full Range of Motion, Normal Inspection, Non Tender, Supple Respiratory: Lungs Clear, Normal Breath Sounds, No Accessory Muscle Use, No Respiratory Distress Cardiovascular: Regular Rate, Rhythm, No Edema, Normal Peripheral Pulses Gastrointestinal: Normal Bowel Sounds, No Organomegaly Extremity: Normal Capillary Refill, Normal Inspection Neurologic/Psychiatric: Alert, Oriented x3, Other (Paresthesias down the left arm involving ulnar nerve and medial nerve. Symptoms are reproduced by palpation to the left lateral T4-T6.) Progress/Results/Core Measures Results/Orders Lab Results Laboratory Tests Test 11/03/21 00:45 Range/Units White Blood Count 7.1 4.3-11.0 10^3/uL Red Blood Count 5.03 4.30-5.52 10^6/uL Hemoglobin 14.7 13.3-17.7 g/dL Hematocrit 44 40-54 % Mean Corpuscular Volume 87 80-99 fL Mean Corpuscular Hemoglobin 29 25-34 pg Mean Corpuscular Hemoglobin Concent 34 32-36 g/dL Red Cell Distribution Width 12.3 10.0-14.5 % Platelet Count 141 130-400 10^3/uL Mean Platelet Volume 11.8 9.0-12.2 fL Immature Granulocyte % (Auto) 0 % Neutrophils (%) (Auto) 53 42-75 % Lymphocytes (%) (Auto) 35 12-44 % Monocytes (%) (Auto) 9 0-12 % Eosinophils (%) (Auto) 2 0-10 % Basophils (%) (Auto) 0 0-10 % Neutrophils # (Auto) 3.8 1.8-7.8 10^3/uL Lymphocytes # (Auto) 2.4 1.0-4.0 10^3/uL Monocytes # (Auto) 0.7 0.0-1.0 10^3/uL Eosinophils # (Auto) 0.2 0.0-0.3 10^3/uL Basophils # (Auto) 0.0 0.0-0.1 10^3/uL Immature Granulocyte # (Auto) 0.0 0.0-0.1 10^3/uL Prothrombin Time 14.1 12.2-14.7 SEC INR Comment 1.0 0.8-1.4 Activated Partial Thromboplast Time 34 24-35 SEC Sodium Level 144 135-145 MMOL/L Potassium Level 3.4 L 3.6-5.0 MMOL/L Chloride Level 107 98-107 MMOL/L Carbon Dioxide Level 24 21-32 MMOL/L Anion Gap 13 5-14 MMOL/L Blood Urea Nitrogen 13 7-18 MG/DL Creatinine 1.09 0.60-1.30 MG/DL Estimat Glomerular Filtration Rate 82 BUN/Creatinine Ratio 12 Glucose Level 113 H 70-105 MG/DL Calcium Level 9.5 8.5-10.1 MG/DL Corrected Calcium 9.3 8.5-10.1 MG/DL Magnesium Level 2.2 1.6-2.4 MG/DL Total Bilirubin 0.5 0.1-1.0 MG/DL Aspartate Amino Transf (AST/SGOT) 21 5-34 U/L Alanine Aminotransferase (ALT/SGPT) 25 0-55 U/L Alkaline Phosphatase 71 40-136 U/L Myoglobin 49.5 10.0-92.0 NG/ML Troponin I < 0.028 <0.028 NG/ML Total Protein 7.2 6.4-8.2 GM/DL Albumin 4.2 3.2-4.5 GM/DL My Orders Orders - MYRON FRITZ Continuous Ekg Monitoring (11/03/21 00:47) Ekg Tracing (11/03/21 00:47) Cbc With Automated Diff (11/03/21 01:18) Magnesium (11/03/21 01:18) Chest 1 View, Ap/Pa Only (11/03/21 01:18) Comprehensive Metabolic Panel (11/03/21 01:18) Myoglobin Serum (11/03/21 01:18) Protime With Inr (11/03/21 01:18) Partial Thromboplastin Time (11/03/21 01:18) O2 (11/03/21 01:18) Ed Iv/Invasive Line Start (11/03/21 01:18) Troponin I [place] (11/03/21 01:18) Aspirin Chewable Tablet (Baby Aspirin Ch (11/03/21 01:30) Methylprednisolone Acetate Inj (Depo-Med (11/03/21 02:30) Ketorolac Injection (Toradol Injection) (11/03/21 02:45) Medications Given in ED Vital Signs/I&O 11/03/21 11/03/21 00:39 02:57 Temp 36.8 Pulse 80 71 Resp 20 18 B/P (MAP) 205/138 (160) 127/107 Pulse Ox 97 98 O2 Delivery Room Air Room Air Progress Progress Note #1: Time: 01:23 Progress Note Suspect the pain is likely related to a radiculopathy. We will get a chest x- ray given aspirin and troponin. 17 hours after the pain started at the troponin is negative then we will set him up with a shot of steroid and point of maximal tenderness injection. Progress Note #2: Time: 02:21 Progress Note Many hours later he has a negative troponin so plan to treat his clinical thoracic radiculopathy. Initial ECG Impression Date: Nov 03, 2021 Initial ECG Impression Time: 00:41 Initial ECG Rate: 75 Initial ECG Rhythm: Normal Sinus Initial ECG Intervals: Normal Initial ECG Impression: Normal, Nonspecific Changes Comment Normal sinus rhythm without clinically relevant ST elevation or depression. Diagnostic Imaging Diagonstic Imaging: Xray Plain Films/CT/US/NM/MRI: chest Comments No acute cardiopulmonary processes on 1 view chest x-ray. [facility] [place], [place] NAME: TERESA ARVIZU [facility] REC#: [id number] PT STATUS: DEP ER : 1970 PHYSICIAN: MYRON FRITZ MD ADMIT DATE: 11/03/21/ER Signed Date of Exam:11/03/21 CHEST 1 VIEW, AP/PA ONLY Indication: Chest pain. Comparison: 11/18/2015. Discussion: Single portable upright view of the chest was obtained. Antecedent granulomatous disease is again noted within the left lung base, benign. Normal heart size. No consolidation, pleural fluid, or pneumothorax. No osseous abnormality. Impression: 1. Negative chest. Dictated by: Dictated on workstation # [id number] Dict: 11/03/21 0634 Trans: 11/03/21 1511 VANE [id number] Interpreted by: DIANNA MCKENNA MD Electronically signed by: DIANNA MCKENNA MD 11/03/21 1511 Reviewed: Reviewed by Me Departure Impression Primary Impression: Radiculopathy, thoracic region Disposition: HOME, SELF-CARE Condition: Stable Departure-Patient Inst. Decision time for Depature: 02:41 Referrals: BELEM HA MD (PCP/Family) Primary Care Physician Patient Instructions: Radiculopathy (DC) Add. Discharge Instructions: You have a pinched nerve in your thoracic spine. Typically these resolve when the inflammation in your back resolves. The steroid will hang on for 5 to 7 days and reduce inflammation in your back. The numbing medicine the last for about 6 to 8 hours. Start taking naproxen/Aleve 2 tablets twice a day or ibuprofen 4 tablets 3 times a day for the next 1 to 2 weeks until the inflammation is down in your back. You may also use Tylenol as necessary for breakthrough pain. Heating pads, massage and topical creams such as icy hot, Biofreeze etc. are helpful. If by next week you are still having pain then I would suggest following up with your physical therapy team. You may also follow-up with your primary care doctor for help with managing your symptoms. All discharge instructions reviewed with patient and/or family. Voiced understanding. Scripts Cyclobenzaprine HCl (Cyclobenzaprine HCl) 10 Mg Tablet 10 MG PO Q8H PRN for SPASMS, #20 TAB 0 Refills Prov: MYRON FRITZ 11/03/21 Work/School Note: Work Release Form Date Seen in the Emergency Department: Nov 03, 2021 Return to Work: Nov 05, 2021 Restrictions: No Restrictions MYRON FRITZ Nov 03, 2021 01:25
[2021-11-03] MEDS ORDERED: ASPIRIN 81 MG CHEW (CHILDREN'S ASA) PO ONE (01:30)
[2021-11-03 01:34] LABS: BASOPHILS % (AUTO) 0 % (0-10); EOSINOPHILS # (AUTO) 0.2 10^3/uL (0.0-0.3); EOSINOPHILS % (AUTO) 2 % (0-10); HEMATOCRIT 44 % (40-54); HEMOGLOBIN 14.7 g/dL (13.3-17.7); LYMPHOCYTES # (AUTO) 2.4 10^3/uL (1.0-4.0); LYMPHOCYTES % (AUTO) 35 % (12-44); MEAN CORPUSCULAR HEMOGLOBIN 29 pg (25-34); MEAN CORPUSCULAR HGB CONC 34 g/dL (32-36); MEAN CORPUSCULAR VOLUME 87 fL (80-99); MEAN PLATELET VOLUME 11.8 fL (9.0-12.2); MONOCYTES # (AUTO) 0.7 10^3/uL (0.0-1.0); MONOCYTES % (AUTO) 9 % (0-12); NEUTROPHILS # (AUTO) 3.8 10^3/uL (1.8-7.8); NEUTROPHILS % (AUTO) 53 % (42-75); PLATELET COUNT 141 10^3/uL (130-400); WHITE BLOOD COUNT 7.1 10^3/uL (4.3-11.0)
[2021-11-03 01:42] LABS: PROTHROMBIN TIME PATIENT 14.1 SEC (12.2-14.7)
[2021-11-03 01:48] LABS: ALBUMIN 4.2 GM/DL (3.2-4.5); BILIRUBIN,TOTAL 0.5 MG/DL (0.1-1.0); CALCIUM 9.5 MG/DL (8.5-10.1); CREATININE SERUM 1.09 MG/DL (0.60-1.30); MAGNESIUM 2.2 MG/DL (1.6-2.4); POTASSIUM 3.4 MMOL/L (3.6-5.0); TOTAL PROTEIN 7.2 GM/DL (6.4-8.2)
[2021-11-03] MEDS ORDERED: methylPREDNISolone 40 MG/ML (DEPO MEDROL) VIAL IM ONE (02:30)
[2021-11-03] MEDS ORDERED: CYCL10TA25 PO (02:43)
[2021-11-03] MEDS ORDERED: KETOROLAC 30 MG/ML VIAL IVP ONE (02:45)
[2021-11-03 02:57] VITALS: BP 127/107
--- NOTE | 2021-11-03 06:51 | Diagnostic Imaging Report ---
Indication: Chest pain. Comparison: 11/18/2015. Discussion: Single portable upright view of the chest was obtained. Antecedent granulomatous disease is again noted within the left lung base, benign. Normal heart size. No consolidation, pleural fluid, or pneumothorax. No osseous abnormality. Impression: 1. Negative chest. Dictated by: Dictated on workstation # [id number]
== END 2021-11-03 02:59 | disposition home or self-care (01) ==
LOC: EDUNIT# 00:33 → ER 00:36
DX: M54.14 Radiculopathy, thoracic region (principal); I10 Essential (primary) hypertension; K21.9 Gastro-esophageal reflux disease without esophagitis; I48.91 Unspecified atrial fibrillation; F17.290 Nicotine dependence, other tobacco product, uncomplicated; Z79.01 Long term (current) use of anticoagulants; Z79.899 Other long term (current) drug therapy
CPT/HCPCS: 36415; 71045; 80053; 83735; 83874; 84484; 85025; 85610; 85730; 93005